=== PATIENT | male | born 1985 | race Two or more races ===

== ENCOUNTER 2021-01-22 11:11 | Emergency (ER) | payer MEDICAID ==
[~2021-01-22] VITALS: Ht 188 cm; Wt 96.5 kg
[2021-01-22 11:17] VITALS: BP 152/93
--- NOTE | 2021-01-22 11:57 | NUR ---
pt presents to ed with c/o throbbing headache. pt states just got out of retirement after 6 years.
[2021-01-22] MEDS ORDERED: IBUPROFEN 200 MG TABLET ONE (12:29)
[2021-01-22] MEDS ORDERED: IBUPROFEN 200 MG TABLET PO ONE (12:30)
--- NOTE | 2021-01-22 12:38 | NUR ---
pt medicated per order, tolerated well. pt educatd on discharge instructions, verbalized understanding. ambulatory to discharge with steady gait.
== END 2021-01-22 12:40 | disposition home or self-care (01) ==
LOC: ED 12:25
DX: G44.011 Episodic cluster headache, intractable (principal); G44.211 Episodic tension-type headache, intractable
CPT/HCPCS: 99282